=== PATIENT | female | born 1975 | race Caucasian/White ===

== ENCOUNTER 2019-07-02 11:41 | Outpatient (CLI) | payer OTHER, SELFPAY ==
--- NOTE | 2019-07-02 11:15 | DI.RAD_ITS ---
EXAM: XR KNEE LT 3V AP,LAT,YADIRA CLINICAL HISTORY: left knee pain, CONTUSION OF LT KNEE, M25.562, S80.02XA. TECHNIQUE: 2D digital imaging was performed. COMPARISON: No exams were available for comparison FINDINGS: BONES: No acute fracture is present. No bony destructive lesion is seen. JOINTS: The knee is normally aligned. No joint effusion is seen. SOFT TISSUE: Normal. IMPRESSION: Normal radiographs of the left knee. DATA REPOSITORY: RADIATION DOSE DELIVERED:
== END 2019-07-02 12:01 ==
DX: M25.562 Pain in left knee (principal); S80.02XA Contusion of left knee, initial encounter
CPT/HCPCS: 73562

== ENCOUNTER 2020-01-29 16:09 | Outpatient (REF) | payer OTHER, SELFPAY ==
[2020-02-02 15:10] LABS: Patient Race White; SARS-CoV-2 Specimen Source Nasopharynx
[2020-02-03 10:37] LABS: SARS-CoV-2 RNA Detected (Undetected)
== END 2020-01-29 16:29 ==
LOC: NCHCN 16:09
PROVIDERS: Visit Provider Physician Assistant
DX: B34.9 Viral infection, unspecified (principal); Z20.828 Contact with and (suspected) exposure to other viral communicable diseases
CPT/HCPCS: U0003

== ENCOUNTER 2022-05-04 11:42 | Outpatient (CLI) | payer OTHER, SELFPAY ==
--- NOTE | 2022-05-04 14:15 | DI.RAD_ITS ---
Exam(s) XR FOOT LT COMPLETE EXAM: XR FOOT LT COMPLETE CLINICAL HISTORY: continued pain since last summer, lt foot, M79.672. TECHNIQUE: 2D digital imaging was performed. Three views. COMPARISON: No exams were available for comparison FINDINGS: BONES: No acute fracture is present. No bony destructive lesion is seen. Small cysts medial 1st metat arsal head. JOINTS: No dislocation present. Joint spaces are maintained. SOFT TISSUE: Normal. IMPRESSION: Unremarkable radiographs of the left foot. DATA REPOSITORY: RADIATION DOSE DELIVERED:
== END 2022-05-04 12:02 ==
LOC: DI 11:47
PROVIDERS: PCP Nurse Practitioner Family; Visit Provider Nurse Practitioner Family
DX: M79.672 Pain in left foot (principal)
CPT/HCPCS: 73630

== ENCOUNTER 2022-10-17 10:09 | Outpatient (REF) | payer OTHER, SELFPAY ==
--- NOTE | 2022-10-17 08:40 | PAPFT_PTH ---
PATIENT: Kate Sanchez LOC: N U#:[id number] AGE/SX: 46/F ROOM: RE10/17/[address]: Anisha Dhillon NP : 1975 BED: DIS: 10/17/2022 SPEC #: [id number] RECD: 10/17/22 13:07 STATUS: TANNA REEva #: [id number] FABIANA: 10/17/22 08:[address]: Anisha Dhillon NP DEPT: [facility] Cytology RECD BY: Sandra Lema ENTERED: 10/17/22 13:07 SP TYPE: PAPFT OTHR DR: Steven Solorio DNP Tissues: 1 - CX/ENDOCX FOR PAP SMEARS Procedures: PAP THIN PREP/UVM Screening HPV DNA PROBE Comments: [id number]
== END 2022-10-17 10:10 | disposition home or self-care (01) ==
LOC: LBN 10:09
PROVIDERS: PCP Nurse Practitioner Family; Visit Provider Nurse Practitioner Women's Health
DX: Z12.4 Encounter for screening for malignant neoplasm of cervix (principal); Z11.51 Encounter for screening for human papillomavirus (HPV)
CPT/HCPCS: 88142; 87624

== ENCOUNTER → 2022-11-07 03:21 | Outpatient (CLI) | payer OTHER, SELFPAY ==
--- NOTE | 2022-11-07 08:45 | DI.MAMMO_ITS ---
Exam(s) MAMMO SCREENING EXAM: MAMMO SCREENING CLINICAL HISTORY: screening TECHNIQUE: Bilateral full field digital CC and MLO mammographic images were obtained with 3D tomosyn thesis and utilizing computer aided detection (CAD). COMPARISON: This is a baseline examination. There are no priors for comparison. FINDINGS: Masses/Architectural Distortion: There is a 0.8 cm partially obscured nodule in the outer right breas t seen on the craniocaudad view. There also appears to be a 1.1 cm partially obscured nodule in the retroareolar region of the left breast appreciated on the MLO view. Microcalcifications: No suspicious pleomorphic-type are seen. Skin Thickening/Nipple Retraction: None. IMPRESSION: 1. Two nodules seen. There is a 0.8 cm nodule in the outer right breast on the CC view. There is al so a 1.1 cm partially obscured nodule in the retroareolar region of the left breast on the MLO view. 2. These area should be further evaluated with spot compression views. Limited bilateral breast ultr asound should also be obtained at that time. BI-RADS Category 0 - Assessment Incomplete: Need additional imaging evaluation Breast Density - Category C - Heterogeneously dense Breast density category C or D implies that the patient has dense breast tissue. Dense breast tissue is very common and is not abnormal but dense breast tissue can make it harder to find cancer on a ma mmogram. Also, dense breast tissue may increase their breast cancer risk. This information about the result of the mammogram report was provided to the patient to raise their awareness. Use this report when you speak with the patient about their risks for breast cancer, which includes their family hist ory. At that time, you may recommend for more screening tests (Ultrasound or MRI) as they might be us eful based on their risk. A negative radiographic report should not delay biopsy if a dominant or clinically suspicious mass is present. Up to ten percent of cancers are not identified on mammography. A negative report may reinforce clinical impression. Adenosis and dense breasts may obscure an underlying neoplasm. False positive reports average 6 to 10%. Patient will receive a letter notifying them of these results.
== END ==
PROVIDERS: PCP Nurse Practitioner Family; Visit Provider Nurse Practitioner Women's Health
DX: Z12.31 Encounter for screening mammogram for malignant neoplasm of breast (principal)
CPT/HCPCS: 77063; 77067

== ENCOUNTER → 2022-11-16 01:09 | Outpatient (CLI) | payer OTHER, SELFPAY ==
--- NOTE | 2022-11-16 | DI.US_ITS ---
Exam(s) US BREAST RT LIMITED US BREAST LT LIMITED MG MAMMO SCREEN CALL BACK BI EXAM: MG MAMMO SCREEN CALL BACK BI CLINICAL HISTORY: F/U MAMMO, JAX BREAST NODULES. TECHNIQUE: Spot compression digital Mammography views of the bothbreasts with Tomosynthesis followe d by bilateral breast ultrasound. COMPARISON: US US BREAST LT LIMITED from 11/16/2022 US US BREAST RT LIMITED from 11/16/2022 FINDINGS: RIGHT BREAST: Mammography/Tomosynthesis: Masses/Architectural Distortion: Persistent circumscribed nodule seen in the upper outer quadrant. Microcalcifictions: No suspicious pleomorphic-type are seen. Scattered benign-appearing calcification s. Skin Thickening/Nipple Retraction: None. Right breast US: Echotexture: Normal appearance of the glandular tissue. Shadowing: No suspicious foci. Cyst: None. Solid lesions: 10 o'clock position 3 cm from the nipple circumscribed hypoechoic avascular nodule rafael suring 7 x 5 x 7 millimeters. 11 o'clock position 1 cm from the nipple, circumscribed hypoechoic nalini scular nodule measuring 9 x 6 x 10 millimeters. Findings likely represent fibroadenoma. Ductal dilation: None. LEFT BREAST: Mammography/Tomosynthesis: Masses/Architectural Distortion: Persistent circumscribed ovoid nodule seen in the inferior anterior tissue. Microcalcifictions: No suspicious pleomorphic-type are seen. Skin Thickening/Nipple Retraction: None. Left breast ultrasound: Echotexture: Normal appearance of the glandular tissue. Shadowing: No suspicious foci. Cyst: 5 o'clock position 1 cm from the nipple simple cyst measuring 10 x 5 x 8 millimeters. Solid lesions: None seen. Ductal dilation: Mild ductal dilatation in the subareolar region. IMPRESSION: 1. Right breast: No evidence of malignancy is noted.Six-month follow-up mammogram and ultrasound david mmended. 2. Left breast: No evidence of malignancy is noted. Six-month follow-up mammogram and ultrasound rec ommended. 3. The findings were discussed with the patient on the date of the examination. BI-RADS Category 3 - 6 month - Probably Benign Finding: Recommend follow-up mammography in 6 months Breast Density - Category C - Heterogeneously dense A mammogram that demonstrates density of C or D indicates the patient's breast tissue is dense. Dense breast tissue is very common and is not abnormal, but dense breast tissue can make it harder to find cancer on a mammogram. Also, dense breast tissue may increase their breast cancer risk. This informa tion about the result of the mammogram report was provided to the patient to raise their awareness. U se this report when you speak with the patient about their risks for breast cancer, which includes th eir family history. At that time, you may recommend for more screening tests (Ultrasound or MRI) as t hey might be useful based on their risk. A negative radiographic report should not delay biopsy if a dominant or clinically suspicious mass is present. Up to ten percent of cancers are not identified on mammography. A negative report may reinforce clinical impression. Adenosis and dense breasts may obscure an underlying neoplasm. False positive reports average 6 to 10%. Patient will receive a letter notifying them of these results.
== END ==
PROVIDERS: PCP Nurse Practitioner Family; Visit Provider Nurse Practitioner Women's Health
DX: Z12.31 Encounter for screening mammogram for malignant neoplasm of breast (principal); R92.8 Other abnormal and inconclusive findings on diagnostic imaging of breast
CPT/HCPCS: 76642; 77063; 77067

== ENCOUNTER 2023-02-21 16:16 | Emergency (ER) | payer OTHER, SELFPAY ==
--- NOTE | 2023-02-21 16:15 | DI.RAD_ITS ---
Exam(s) XR ANKLE RT COMPLETE EXAM: XR ANKLE RT COMPLETE CLINICAL HISTORY: lateral pain, eval for dist fib/ankle fx. TECHNIQUE: 2D digital imaging was performed. COMPARISON: No exams were available for comparison FINDINGS: 3 views Mild soft tissue swelling over the lateral ankle. No evidence of fracture or widening of the ankle mortise. Talar dome unremarkable. Sub talar and ti biotalar joints appear unremarkable. Base of the 5th metatarsal unremarkable. No osseous tarsal coa lition. IMPRESSION: No fracture. DATA REPOSITORY: RADIATION DOSE DELIVERED:
[2023-02-21 16:19] VITALS: BP 116/54; PULSE 85; RESP 18; TEMP 36.9; O2SAT 100
--- NOTE | 2023-02-21 16:24 | ED.GENADUL_ITS ---
Discharge Plan Disposition Patient Disposition: Home Discharge Details Clinical Impression: Right ankle sprain Primary Care Provider: Steven Huffman ED Provider: Tod Gibbs Home Meds and New Rx's Prescriptions: No Action multivitamin [Daily Multi-Vitamin] Tablet 1 tab PO DAILY Discharge Instructions Instructions: Ankle Sprain (ED) Additional Instructions: At this time your x-ray shows no evidence of fracture. You likely had a notable sprain or partial tear of the ligaments in your ankle at the area of pain. Please take Tylenol and Motrin for pain. Ice your ankle frequently. Please keep Brett wrap to help with the swelling. You have been given a walking boot, please utilize this over the next 2 weeks to help stabilize your ankle. Please use the crutches to remain nonweightbearing for the next few days and then gradually transition to mild weightbearing with the walking boot on. If you notice any worsening of your symptoms, or any new symptoms such as vomiting, diarrhea, fever, chills, shortness of breath, chest pain, numbness, weakness, or fainting , please return immediately to the emergency department for reevaluation. Please follow up with your primary care provider as soon as possible for reassessment and reevaluation. As always, it was a pleasure participating in your medical care today. Referrals: Steven Huffman, ELECTRICAL MACHINIST [Primary Care Provider] - Medical Decision Making 47-year-old female with no significant past medical history who presents today for evaluation of right ankle pain. Patient states that she was walking on unsteady cobblestones when her ankle inverted and developed sudden pain in the lateral aspect of her ankle heard a pop. She immediately came in to the ER for further assessment. She has not taken any NSAIDs. She denies any numbness or tingling. Pain is made worse with weightbearing and movement. No other significant pain anywhere else. No other complaints at this time. Exam demonstrates well-appearing female, swelling in the distal fibula, pain and tenderness in this area. No other significant abnormality or signs of t enderness or deformity. Concern for ligamentous injury/sprain versus osseous injury of the distal fibula. We will get an x-ray for further assessment. Did offer oral or IM NSAIDs however patient declined. Will give ice and crutches. 5:17 PM At this time the x-ray was negative for any evidence of osseous fracture. Suspect ligamentous injury. Will give walking boot, crutches recommend NSAIDs at home. Discussed red flags for which return. I have extensively reviewed the treatment plan and discharge instructions with the patient. I have addressed all patient concerns at this time. The patient was made aware of what symptoms to monitor for that would warrant a return to the emergency department. Discussed the plan with the patient, they demonstrate verbal understanding and agreement w ith our assessment and plan at this time. The documentation in this chart was dictated using [employer] dictation software. Please excuse any dictation errors. FINDINGS: 3 views Mild soft tissue swelling over the lateral ankle. No evidence of fracture or widening of the ankle mortise. Talar dome unremarkable. Sub talar and tibiotalar joints appear unremarkable. Base of the 5th metatarsal unremarkable. No osseous tarsal coalition. IMPRESSION: No fracture. HPI General Date/Time Provider Initiated Documentation: 02/21/23 16:18 . HPI Narrative: 47-year-old female with no significant past medical history who presents today for evaluation of right ankle pain. Patient states that she was walking on unsteady cobblestones when her ankle inverted and developed sudden pain in the lateral aspect of her ankle heard a pop. She immediately came in to the ER for further assessment. She has not taken any NSAIDs. She denies any numbness or tingling. Pain is made worse with weightbearing and movement. No other significant pain anywhere else. No other complaints at this time. Related Data Home Medications Medication Instructions Recorded Confirmed multivitamin (Daily Multi-Vitamin 1 tab PO DAILY 10/17/22 02/21/23 tablet) Allergies Allergy/AdvReac Type Severity Reaction Status Date / Time latex Allergy Severe SWELLING Verified 02/21/23 16:23 Sulfa (Sulfonamide Allergy Intermediate Skin Rash Verified 02/21/23 16:23 Antibiotics) General Stated Complaint: Orthopedic LEANDRO: 4 Review of Systems All systems reviewed & are unremarkable except as noted in HPI and below PFSH All Active Problems (Updated 02/21/23 @ 17:03 by Tod Gibbs DO) Right ankle sprain (Acute) Family history of colon cancer (Chronic 04/19/16) Mother Dx at 56 Warts (Acute) Pes anserinus bursitis of left knee (Acute) Skin lesion (Acute) Scalp Pain of right heel (Acute) Rash (Acute) light pink above upper lip Medical History Deviated nasal septum (07/18/16) Seasonal allergies Hyperlipidemia Graves disease Surgical History Status post appendectomy (~01/1998) Family History Mother , 56 Colon cancer at 57 Lung cancer Father , 60 Diabetes Brain cancer Sister No problems noted. Brother No problems noted. Maternal Grandfather , 55 Diabetes Heart disease Stroke Paternal Grandfather , 89 Diabetes Hyperlipidemia Maternal Grandmother , 69 Emphysema, unspecified Paternal Grandmother Cancer Sister No problems noted. Son Substance abuse Daughter No problems noted. Daughter No problems noted. Social History Smoking/Tobacco Use Status: Former Tobacco Use Quit Date: 03/20/05 Second Hand Exposure: No Smoking risk assessment performed?: Yes Alcohol Intake: never Drug use: Never Substance use type: does not use Counseling given: No Counseling provided: none Caregiver/Support person: No Household members: spouse, family and children Housing: house Communication Needs: None Do you need help understanding health information?: Rarely Pets and animals: Yes Pets and animals: cat(s) and dog(s) Sexually active: Yes Do you think of yourself as: straight/heterosexual Current gender identity: female What is your relationship status?: How often do you talk on the phone with friends or family?: three or more times per week How often do you get together with friends or relatives?: twice per week How often do you attend pentecostal or christian services?: decline to answer Do you belong to any clubs or organized social groups?: no Panel score (0-1 are the most socially isolated patients): 2 What type of physical activity do you participate in: walking Duration: 15-30 minutes/day Frequency: 3-4 times per week Christie/Oriental Orthodox: Christianity Special christie needs: No Seatbelt use: always Helmet use: No Drive intox or ride w/intox warehouse delivery driver: No Do you feel safe at home: Yes Do you feel safe in your relationship?: Yes Female Reproductive History Menstrual control method: progestin IUCD and permanent sterilization (Vasectomy) History History 3 Para 3 Hx # Term Pregnancies Multiple births Hx # Pregnancies Ectopic pregnancies AB induced Hx Number of Living Children AB spontaneous Exam Narrative Exam Narrative: 1.Const: Well-nourished, Well-developed, appearing stated age 2.Eyes: PERRL, no conjunctival injection, and symmetrical lids. 3.ENT: Atraumatic external nose and ears. Moist MM. Neck: Symmetric, trachea midline, No thyromegaly. 4.CVS: +S1/S2, No murmurs or gallops. Peripheral pulses 2+ and equal in all extremities. Brisk capillary refill in all extremities. 5.RESP: Unlabored respiratory effort. Clear to auscultation bilaterally. No wheezes rales or rhonchi 6.GI: Soft, Nontender/Nondistended, No hepatosplenomegaly. No guarding or rebound. 7.MSK: Right ankle demonstrates notable swelling over the distal fibula. Pain with dorsiflexion. No significant pain with plantarflexion. Pain with supina tion as well as pronation of the foot. Normal dorsalis pedis pulse. Good capillary refill. Normal sensation throughout. 8.Skin: Warm, Dry. No rashes or lesions. 9.Neuro: supervisor composing room II-XII grossly intact. Sensation grossly intact, no focal neurologic deficits. 10.Psych: (AAO) x3. Appropriate mood and affect Course Vital Signs Vital signs: Vital Signs Temperature 36.9 C 02/21/23 16:19 Pulse 85 02/21/23 16:19 Respiratory Rate 18 02/21/23 16:19 Blood Pressure 116/54 L 02/21/23 16:19 Pulse Oximetry 100 02/21/23 16:19 Temperature 36.9 C 02/21/23 16:19 Temperature Source Temporal Artery Scan 02/21/23 16:19 Pulse 85 02/21/23 16:19 Respiratory Rate 18 02/21/23 16:19 Respiratory Effort Normal 02/21/23 16:21 Blood Pressure 116/54 L 02/21/23 16:19 Blood Pressure Position Sitting 02/21/23 16:19 Pulse Oximetry 100 02/21/23 16:19 Oxygen Delivery Method Room Air 02/21/23 16:19 Oxygen Flow Rate 0 02/21/23 16:19 Pain Level 7 12/05/23 16:19
== END 2023-02-21 17:28 | disposition home or self-care (01) ==
PROVIDERS: Emergency Provider Student in an Organized Health Care Education/Training Program; PCP Nurse Practitioner Family
DX: Z91.040 Latex allergy status; Z88.2 Allergy status to sulfonamides; S93.401A Sprain of unspecified ligament of right ankle, initial encounter; X50.1XXA Overexertion from prolonged static or awkward postures, initial encounter
CPT/HCPCS: 99283; 73610

== ENCOUNTER → 2023-06-08 03:50 | Outpatient (CLI) | payer OTHER, SELFPAY ==
--- NOTE | 2023-06-08 10:00 | DI.US_ITS ---
Exam(s) US BREAST LT COMPLETE US BREAST RT COMPLETE MG MAMMO DIAGNOSTIC BI EXAM: MG MAMMO DIAGNOSTIC BI CLINICAL HISTORY: Bilateral breast nodules R92.8 ABNL MAMMO 6 MO FU. COMPARISON: MG MG MAMMO SCREENING from 11/07/2022 US US BREAST LT LIMITED from 11/16/2022 US US BREAST RT LIMITED from 11/16/2022 MG MG MAMMO SCREEN CALL BACK BI from 11/16/2022 US US BREAST LT COMPLETE from 06/08/2023 US US BREAST RT COMPLETE from 06/08/2023 TECHNIQUE: Craniocaudal and mediolateral oblique Full Field Digital Mammography views of both breast s with Computer Aided Diagnosis followed by Tomosynthesis and bilateral breast ultrasound. FINDINGS: Mammography/Tomosynthesis: Masses: Stable area of nodularity seen in the upper right breast. Stable area of nodularity in the s ubareolar region of the left breast. Architectural Distortion: None seen. Microcalcifications: No suspicious pleomorphic-type are seen. Stable calcifications in the subareolar region of the right breast. Skin Thickening/Nipple Retraction: None. Right breast US: Echotexture: Normal appearance of the glandular tissue. Shadowing: No suspicious foci. Cyst: 3 millimeter cyst 1 o'clock position 1 cm from the nipple Solid lesions: Circumscribed hypoechoic avascular lesion in the 11 o'clock position 1 cm from the nip ple measuring 9 x 5 x 8 millimeters. 6 x 5 x 7 millimeter cyst 10 o'clock position 2 cm from the nip ple. Left breast ultrasound: 6 millimeter cyst 7 o'clock position 1 cm from the nipple. 7 x 6 x 6 millimeter cyst 9 o'clock 1 cm from the nipple. 12 x 9 x 6 millimeter cyst 5 o'clock position 1 cm from the nipple. Ductal dilation: Mild in the subareolar region. IMPRESSION: 1. No evidence of malignancy is noted. Stable appearance right wrist lesions, likely fibroadenomas. Cysts are noted in both breasts. 2. Unless there is more urgent need, follow-up screening mammography is recommended, as per [place] [employer] guidelines. BI-RADS Category 2 - Benign Findings Breast Density - Category C - Heterogeneously dense Breast density category C or D implies that the patient has dense breast tissue. Dense breast tissue is very common and is not abnormal but dense breast tissue can make it harder to find cancer on a ma mmogram. Also, dense breast tissue may increase their breast cancer risk. This information about the result of the mammogram report was provided to the patient to raise their awareness. Use this report when you speak with the patient about their risks for breast cancer, which includes their family hist ory. At that time, you may recommend for more screening tests (Ultrasound or MRI) as they might be us eful based on their risk. A negative radiographic report should not delay biopsy if a dominant or clinically suspicious mass is present. Up to ten percent of cancers are not identified on mammography. A negative report may reinforce clinical impression. Adenosis and dense breasts may obscure an underlying neoplasm. False positive reports average 6 to 10%. Patient will receive a letter notifying them of these results.
== END ==
PROVIDERS: PCP Nurse Practitioner Family; Visit Provider Nurse Practitioner Women's Health
DX: R92.8 Other abnormal and inconclusive findings on diagnostic imaging of breast (principal); Z12.31 Encounter for screening mammogram for malignant neoplasm of breast
CPT/HCPCS: 76642; 77062; 77066; G0279

== ENCOUNTER → 2023-06-08 12:23 | Outpatient (CLI) | payer OTHER, SELFPAY ==
--- NOTE | 2023-06-08 14:48 | DI.RAD_ITS ---
Exam(s) XR ANKLE RT COMPLETE EXAM: XR ANKLE RT COMPLETE CLINICAL HISTORY: continued pain after injury,m79.671. TECHNIQUE: 2D digital imaging was performed. Three views. COMPARISON: CR XR ANKLE RT COMPLETE from 02/21/2023 FINDINGS: BONES: No acute fracture is present. No bony destructive lesion is seen. JOINTS: The ankle mortise is normally aligned. SOFT TISSUE: Normal. IMPRESSION: Unremarkable radiographs of the right ankle. DATA REPOSITORY: RADIATION DOSE DELIVERED:
--- NOTE | 2023-06-08 14:48 | DI.RAD_ITS ---
Exam(s) XR FOOT RT COMPLETE EXAM: XR FOOT RT COMPLETE CLINICAL HISTORY: continued pain after injury, m79.672. TECHNIQUE: 2D digital imaging was performed. Three views. COMPARISON: CR XR FOOT LT COMPLETE from 05/04/2022 FINDINGS: BONES: No acute or old fracture is present. No bony destructive lesion is seen. Small accessory emil cular. JOINTS: No dislocation present. SOFT TISSUE: Normal. IMPRESSION: Unremarkable radiographs of the right foot. DATA REPOSITORY: RADIATION DOSE DELIVERED:
== END ==
PROVIDERS: PCP Nurse Practitioner Family; Visit Provider Nurse Practitioner Family
DX: M25.571 Pain in right ankle and joints of right foot (principal)
CPT/HCPCS: 73610; 73630

== ENCOUNTER 2024-10-10 01:11 | Outpatient (CLI) | payer OTHER, SELFPAY ==
--- NOTE | 2024-10-10 10:20 | DI.RAD_ITS ---
Exam(s) XR ARTHRITIS SERIES EXAM: XR ARTHRITIS SERIES CLINICAL HISTORY: pain at base of bilateral thumbs,hand pain,hand weakness,r29.898,m79.643. TECHNIQUE: 2D digital imaging was performed. Two views of both hands. COMPARISON: No exams were available for comparison FINDINGS: BONES: No acute fracture is present. No erosive or productive bony lesions are seen. The bones are normally mineralized. JOINTS: No dislocation present. The 1st carpal metacarpal joints are maintained and show mild periarticular spurring. There are no significant degenerative changes elsewhere. SOFT TISSUE: Normal. IMPRESSION: Mild degenerative changes at the 1st carpal metacarpal joints bilaterally. DATA REPOSITORY: RADIATION DOSE DELIVERED:
== END 2024-10-10 01:31 ==
LOC: DI 01:11
PROVIDERS: PCP Nurse Practitioner Family; Visit Provider Nurse Practitioner Family
DX: M19.041 Primary osteoarthritis, right hand (principal); M19.042 Primary osteoarthritis, left hand
CPT/HCPCS: 73120

== ENCOUNTER 2024-11-27 15:10 | Outpatient (REF) | payer OTHER, SELFPAY | END 2024-11-27 15:11 | disposition home or self-care (01) | LOC: NCHCN 15:10 | PROVIDERS: PCP Nurse Practitioner Family; Visit Provider Nurse Practitioner Family | DX: J34.89 Other specified disorders of nose and nasal sinuses (principal) | CPT/HCPCS: 87077; 87070; 87186; 87205 ==

== ENCOUNTER 2024-12-24 11:44 | Outpatient (CLI) | payer OTHER, SELFPAY ==
[2024-12-24 15:57] LABS: Abs Immature Grans 0.01 10^3/uL (0.0-0.06); HCT 43.6 % (36.0-46.0); HGB 14.2 g/dL (11.2-15.7); Immature Grans % 0.2 %; MCH 28.1 pg (27.0-33.0); MCHC 32.6 % (32.0-36.0); MCV 86 fL (80-95); MPV 10.3 fL (8.0-11.0); Platelet Count 300 10^3/uL (130-400); RBC 5.06 10^6/uL (3.93-5.22); RDW 12.0 % (11.7-14.6); RDW-SD 37.9 fL; WBC 5.11 10^3/uL (4.4-10.8)
[2024-12-24 16:31] LABS: ALT 25 U/L (14-59); AST 18 U/L (15-37); Albumin 3.9 g/dL (3.4-5.0); Alkaline Phosphatase 71 U/L (46-116); Anion Gap 8.6 mmol/L (3-11); BUN 13 mg/dL (7-18); Bilirubin, Total 0.7 mg/dL (0.2-1.0); CO2 28.4 mmol/L (21.0-32.0); Calcium 9.1 mg/dL (8.5-10.1); Calculated LDL 211 mg/dL (<100); Chloride 103 mmol/L (98-107); Cholesterol 296 mg/dL (<200); Estimated GFR 77.88 (mL/min/1.73m2); Glucose 114 mg/dL (74-106); HDL Cholesterol 68 mg/dL (>or=50); Potassium 3.9 mmol/L (3.5-5.1); Sodium 140 mmol/L (136-145); Total Protein 7.6 g/dL (6.4-8.2); Triglyceride 85 mg/dL (<150)
[2024-12-25 09:48] LABS: Lab Add On Test DONE
[2024-12-25 10:29] LABS: Hemoglobin A1C 5.2 % (<5.7)
[2024-12-25 10:33] LABS: HBs Antibody, Quant 5.0 mIU/mL (See Note); Hepatitis B Surface Antigen Negative (Negative)
[2024-12-25 10:47] LABS: HIV-1/2 Ag & Ab Screen Negative (Negative)
[2024-12-25 10:51] LABS: Hepatitis C Ab w Rflx HCV PCR Negative (Negative)
[2024-12-25 11:02] LABS: Lyme Ab w Rflx to Lyme Confirm Negative (Negative)
[2024-12-26 21:38] LABS: B. miyamotoi PCR Negative (Negative); Babesia divergens/MO-1 Negative (Negative); Ehrlichia muris eauclairensis Negative (Negative)
== END 2024-12-24 11:45 | disposition home or self-care (01) ==
LOC: LOS 11:44
PROVIDERS: PCP Nurse Practitioner Family; Visit Provider Nurse Practitioner Family
DX: Z11.59 Encounter for screening for other viral diseases (principal); Z13.220 Encounter for screening for lipoid disorders; Z11.4 Encounter for screening for human immunodeficiency virus [HIV]; M25.50 Pain in unspecified joint; R73.9 Hyperglycemia, unspecified
CPT/HCPCS: 36415; 80053; 80061; 86704; 86706; 86803; 87340; 87389; 87798; 83036; 85025; 86618